=== PATIENT | male | born 1995 | race African-American/Black ===

== ENCOUNTER 2018-07-04 13:40 | Emergency (ER) | payer OTHER ==
[2018-07-04 13:45] VITALS: BP 124/81; PULSE 59; TEMP 98.6; BMI 23.1
--- NOTE | 2018-07-04 14:02 | PDOC ---
History of Present Illness - General Chief Complaint: Sore Throat Stated Complaint: SWOLLEN THROAT Time Seen by Provider: 07/04/18 13:44 History Source: Patient Exam Limitations: No Limitations - History of Present Illness Initial Comments: 22 yo M w no sig pmh presents with one day of "throat pain and uvula swelling." He woke up this morning and said the back of his throat felt uncomfortable. He rates the pain as 4/10. He does not admit to any dysphagia. He denies recent fevers, chills, infections, cough, or neck pain. Denies chest pain, SOB, difficulty breathing, headache, neck pain, blurry vision , back pain, odynophagia. PCP: Dr. Correa PSH: Right shoulder rotater cuff surgery Allergies: NKA, NKDA Social Hx: Denies smoking, drinking, or other substance usage. Past History - Past Medical History Allergies/Adverse Reactions: Allergies Allergy/AdvReac Type Severity Reaction Status Date / Time No Known Allergies Allergy Verified 07/04/18 13:41 Home Medications: Ambulatory Orders NK [No Known Home Medication] 07/04/18 COPD: No Other medical history: DENIES - Suicide/Smoking/Psychosocial Hx Smoking History: Never smoked Hx Alcohol Use: No Drug/Substance Use Hx: No Review of Systems - Review of Systems Able to Perform ROS?: Yes Comments:: CONSTITUTIONAL: Absent: fever, no chills, no fatigue EYES: Absent: visual changes ENT: Absent: ear pain, no sore throat CARDIOVASCULAR: Absent: chest pain, no palpitations RESPIRATORY: Absent: cough, no SOB GI: Absent: abdominal pain, no nausea, no vomiting, no constipation, no diarrhea GENITOURINARY: Absent: dysuria, no frequency, no hematuria MUSKULOSKELETAL: Absent: back pain, no arthralgia, no myalgia SKIN: Absent: rash NEURO: Absent: headache *Physical Exam - Vital Signs Last Vital Signs Temp Pulse Resp BP Pulse Ox 98.6 F 59 L 18 124/81 100 07/04/18 13:41 07/04/18 13:41 07/04/18 13:41 07/04/18 13:41 07/04/18 13:41 - Physical Exam Comments: GENERAL: Well-appearing, well-nourished. No apparent distress. HEEN: Normocephalic, atraumatic. PERRL, EOM intact. THROAT: There is no abdnomarl peritonsillar discharge. The R tonsil is mildly erythematous and swollen. No adenopathy. CARDIOVASCULAR: Normal S1, S2. Regular rate and rhythm. PULMONARY: Clear to auscultation bilaterally. ABDOMEN: Soft, non-distended, non-tender. EXTREMITIES: Normal ROM in all four extremities. No gross deformities. SKIN: Warm, dry. No rash NEUROLOGICAL: No focal neurological deficits. Moderate Sedation - Procedure Monitoring Vital Signs: Procedure Monitoring Vital Signs Temperature 98.6 F 07/04/18 13:41 Pulse Rate 59 L 07/04/18 13:41 Respiratory Rate 18 07/04/18 13:41 Blood Pressure 124/81 07/04/18 13:41 O2 Sat by Pulse Oximetry (%) 100 07/04/18 13:41 Medical Decision Making - Medical Decision Making 22 yo M w no sig pmh presents with one day of "throat pain and uvula swelling." He woke up this morning and said the back of his throat felt uncomfortable. DDx IBNLT: Strep throat, amelia-tonsilar abscess, URI. Plan: Rapid strep test, toradol, re-assess. Strep Negative. This is likely a URI. DC with supportive care and PCP fu. *DC/Admit/Observation/Transfer Diagnosis at time of Disposition: Tonsil pain, URI (upper respiratory infection) - Discharge Dispostion Disposition: HOME Condition at time of disposition: Stable Decision to Admit order: No - Referrals Referrals: [facility] [place] [place] [Provider Group] - Patient Instructions Printed Discharge Instructions: Sore Throat, DI for Pharyngitis/ Tonsillopharyngitis -- Adult Additional Instructions: You came into the ER with throat pain. We did a test which showed you do not have strep throat. We believe you have an upper respiratory infection. Take motrin, advil, ibuprofen or tylenol as needed for pain control. Make sure to call your primary care doctor in the next 24 hours to schedule a follow up appointment. Come back to the ER if your pain worsens, you get a fever, start vomiting, or have any other new or worsening concerns. Thank you for coming to the [facility]. We hope you feel better soon! Print Language: ESTONIAN - Post Discharge Activity
[2018-07-04] MEDS ORDERED: KETOROLAC TROMETHAMINE 60 MG/2 ML VIAL IM ONE (14:12)
[2018-07-04] MEDS ORDERED: KETOROLAC TROMETHAMINE 60 MG/2 ML VIAL ONE (14:20)
--- NOTE | 2018-07-04 14:42 | PDOC ---
Attending Attestation - Resident Resident Name: Rai Deluca - ED Attending Attestation I have performed the following: I have examined & evaluated the patient, The case was reviewed & discussed with the resident, I agree w/resident's findings & plan, Exceptions are as noted - HPI HPI: Reviewed residents HPI - Physicial Exam PE: 07/04/18 14:55 Vitals: Triage Vital signs reviewed General Appearance: no acute distress, well nourished well developed, Head: Atraumatic, Ears: TM's normal bilaterally; Nose: Nares patent bilaterally;no nasal congestion Throat: Posterior oropharynx with mild erythema, and mild swelling to the right tonsil, mucous membranes moist, Neck: Supple;No Nucal rigidity Chest Wall: Nontender Cardiac: Regular rate and rhythym, no murmurs, no rubs, no gallops, Lungs: Clear to auscultation bilateral, good air movement bilaterally, Skin: Warm and dry, no rashes or lesions, no rash, no petechiae Psych: normal mood, normal affect - Medical Decision Making 07/04/18 14:56 Mild right tonsillar enlargement no evidence of peritonsillar abscess rapid flu test negative no airway issues no odynophagia no severe pain We'll treat with conservative measures likely viral pharyngitis patient instructed to return to ED for any severe worsening symptoms burning concerns.
== END 2018-07-04 14:54 | disposition home or self-care (01) ==
LOC: FER 13:40
PROC: 3E0233Z Introduction of Anti-inflammatory into Muscle, Percutaneous Approach (ICD-10-PCS; principal; 2018-07-04)
DX: J06.9 Acute upper respiratory infection, unspecified (principal); R07.0 Pain in throat
CPT/HCPCS: 87070; 87880; 99281-25

== ENCOUNTER 2019-03-07 12:47 | Emergency (ER) | payer OTHER ==
[2019-03-07 12:56] VITALS: BP 125/79; PULSE 69; TEMP 98.6; BMI 23.7
--- NOTE | 2019-03-07 13:15 | PDOC ---
History of Present Illness - General Chief Complaint: Injury Stated Complaint: RIGHT KNEE INJURY Time Seen by Provider: 03/07/19 12:50 - History of Present Illness Initial Comments: 03/07/19 13:57 23-year-old male with no significant past medical history presents with knee pain for 1 hour. Patient reports he was running while playing basketball when a player suddenly stopped him while his R leg was planted but the rest of his body twisted. Pt reports hearing a "pop" which prompted him to sit down on the ground. Denies any head strike or LOC. Denies any other injuries. Reports 5 out of 10 pain at this time and his knee while resting but reports pain improved significantly when he tries to stand. Has not taken any medications. EMS was called and patient was transported to the emergency department. He has been in his usual state of health, denies recent fevers, chills, chest pain, shortness of breath, dizziness, weakness or numbness. Denies any urinary symptoms. Past History - Past Medical History Allergies/Adverse Reactions: Allergies Allergy/AdvReac Type Severity Reaction Status Date / Time No Known Allergies Allergy Verified 07/04/18 13:41 Home Medications: Ambulatory Orders NK [No Known Home Medication] 03/07/19 COPD: No - Suicide/Smoking/Psychosocial Hx Smoking History: Never smoked Information on smoking cessation initiated: No Hx Alcohol Use: Yes (OCCASSIONAL) Drug/Substance Use Hx: Yes (WEED) Review of Systems - Review of Systems Comments:: 03/07/19 14:03 GENERAL/CONSTITUTIONAL: No fever or chills. No weakness. HEAD, EYES, EARS, NOSE AND THROAT: No change in vision. No ear pain or discharge. No sore throat. GASTROINTESTINAL: No nausea, vomiting, diarrhea or constipation. GENITOURINARY: No dysuria, frequency, or change in urination. CARDIOVASCULAR: No chest pain or shortness of breath. RESPIRATORY: No cough, wheezing, or hemoptysis. MUSCULOSKELETAL: +Knee pain. No muscle swelling or pain. No neck or back pain. SKIN: No rash NEUROLOGIC: No headache, vertigo, loss of consciousness, or change in strength/ sensation. ENDOCRINE: No increased thirst. No abnormal weight change. HEMATOLOGIC/LYMPHATIC: No anemia, easy bleeding, or history of blood clots. ALLERGIC/IMMUNOLOGIC: No hives or skin allergy. *Physical Exam - Vital Signs Last Vital Signs Temp Pulse Resp BP Pulse Ox 98.6 F 69 16 125/79 100 03/07/19 12:48 03/07/19 12:48 03/07/19 12:48 03/07/19 12:48 03/07/19 12:48 - Physical Exam Comments: 03/07/19 14:04 GENERAL: Awake, alert, and fully oriented, in no acute distress HEAD: No signs of trauma EYES: PERRLA, EOMI, sclera anicteric, conjunctiva clear ENT: ANares patent, oropharynx clear without exudates. Moist mucosa NECK: Normal ROM, supple, no lymphadenopathy, JVD, or masses LUNGS: Breath sounds equal, clear to auscultation bilaterally. No wheezes, and no crackles HEART: Regular rate and rhythm, normal S1 and S2, no murmurs, rubs or gallops ABDOMEN: Soft, nontender, normoactive bowel sounds. No guarding, no rebound. No masses EXTREMITIES: R knee with FROM, no edema, no focal bony ttp. +mild laxity and pain with valgus stress to the knee. Negative robert, anterior drawer and posterior drawer test, negative mcmurrays test. 2+ DP and TP pulses. WWP distally. Compartments of RLE are soft. NEUROLOGICAL: Normal speech, cranial nerves intact, equal strength and sensation b/l SKIN: Warm, Dry, normal turgor, no rashes or lesions noted. ED Treatment Course - RADIOLOGY Radiology Studies Ordered: Category Date Time Status KNEE 4 POS-RIGHT [RAD] Stat Radiology 03/07/19 12:49 Taken Medical Decision Making - Medical Decision Making 03/07/19 14:21 23yo M presents to the ED with R knee pain after playing basketball RLE neurovasc intact XR negative for bony injury Exam most consistent with MCL sprain/tear Plan for knee immobilizer, crutches, naproxen for pain and f/u with orthopedics Pain well controlled Pt clincially stable for Dc home I discussed the physical exam findings, ancillary test results and final diagnoses with the patient. I answered all of the patient's questions. The patient was satisfied with the care received and felt comfortable with the discharge plan and treatment plan. The patient will call their primary care physician within 24 hours to arrange follow-up and will return to the Emergency Department with any new, persistent or worsening symptoms. *DC/Admit/Observation/Transfer Diagnosis at time of Disposition: Knee pain, acute, MCL sprain of right knee, Injury while playing basketball - Discharge Dispostion Disposition: HOME Condition at time of disposition: Stable Decision to Admit order: No - Referrals Referrals: Camron Qureshi MD [Staff Physician] - - Patient Instructions Printed Discharge Instructions: DI for Knee Pain Additional Instructions: You likely have a ligamentous injury to your knee. You must follow up with the orthopedic doctor within 1 week for further evaluation. You may take naproxen for pain as needed twice a day. Do not take motrin, aleve , ibuprofen, advil or any other NSAID medication if you are taking naproxen as it can damage your kidneys or cause gastrointestinal distress. You may also take tylenol (per label instructions) if naproxen is not controlling your pain. Apply ice to your right knee 3-4 times daily for 20 minutes at a time Return to the emergency department if you have any new, worsening, or concerning symptoms. - Post Discharge Activity - Attestations Physician Attestion: 03/07/19 14:28 I, Dr. Amadou Jensen MD, attest that this document has been prepared under my direction and personally reviewed by me in its entirety. I further attest, that it accurately reflects all work, treatment, procedures and medical decision -making performed by me.
[2019-03-07] MEDS ORDERED: NAPROXEN 500 MG TABLET (FP) PO ONE (13:54)
[2019-03-07] MEDS ORDERED: NAPROXEN 500 MG TABLET (FP) ONE (13:57)
== END 2019-03-07 14:39 | disposition home or self-care (01) ==
LOC: FER 12:47
PROC: 2W3LX1Z Immobilization of Right Lower Extremity using Splint (ICD-10-PCS; principal; 2019-03-07)
DX: S83.8X1A Sprain of other specified parts of right knee, initial encounter (principal); Y93.67 Activity, basketball; Y92.310 Basketball court as the place of occurrence of the external cause
CPT/HCPCS: 73564-TC-RT-FY; 99282-25

== ENCOUNTER 2019-04-26 17:02 | Emergency (ER) | payer OTHER ==
[2019-04-26 17:06] VITALS: BP 125/79; PULSE 81; TEMP 99; BMI 24.3
[2019-04-26] MEDS ORDERED: IBUPROFEN 600 MG TABLET (FP) PO ONE ×2 (17:12→17:14)
[2019-04-26] MEDS ORDERED: OXYMETAZOLINE 0.05% NASAL SOLUTION 15 ML BOTTLE NS ONE ×2 (17:12→17:14)
[2019-04-26] MEDS ORDERED: SODIUM CHLORIDE FOR INHALATION 3 ML VIAL.NEB IH ONE (17:12)
--- NOTE | 2019-04-26 17:26 | PDOC ---
Attending Attestation - Resident Resident Name: Sa Cariira - ED Attending Attestation I have performed the following: I have examined & evaluated the patient, The case was reviewed & discussed with the resident, I agree w/resident's findings & plan - HPI HPI: 04/26/19 17:22 23 YOM with no sig med history presenting with sinus congestion, throat pain, headache x 4 days. initially with sore throat, which has improved. no odynophagia, no fever or chills, no cough, no cp or sob. no ear pain has not take much for his pain or symptoms. - Physicial Exam PE: 04/26/19 17:23 alert, no acute distress.NCAT, PERRL, EOMI, clear conjunctiva, anicteric, moist mucus membranes, oropharynx clear. Airway patent, normal phonation. Uvula midline. no tonsillar hypertrophy. No sinus tenderness, TM clear, no pinna tenderness to manipulation. No rash, breathing comfortably on room air, speaking full sentences. Abdomen is soft and nontender, no neck tenderness or rigidity, WORKMAN x4.no focal neuro deficits - Medical Decision Making 04/26/19 17:25 Vital Signs Temp Pulse Resp BP Pulse Ox 99 F 81 19 125/79 97 04/26/19 17:03 04/26/19 17:03 04/26/19 17:03 04/26/19 17:03 04/26/19 17:03 Vital signs reviewed within normal limits. Nontoxic-appearing, tolerating oral intake. Neuro intact. No systemic findings. HEENT is unremarkable, no tonsillar findings or oropharyngeal abnormalities to suggest strep infection. no airway obstruction. Syndrome the patient is exhibiting is most likely due to a viral pharyngitis versus upper respiratory infection. Will trial saline nebs and Afrin sprays in the affected naris for appropriate decongestion. Not to be used more than 3 days. Continue with supportive care, adequate hydration, OTC analgesia and follow-up with primary care doctor, return precautions advised. 04/26/19 17:50
--- NOTE | 2019-04-26 17:36 | PDOC ---
History of Present Illness - General Chief Complaint: Headache Stated Complaint: nasal congestion and headache Time Seen by Provider: 04/26/19 17:04 History Source: Patient Exam Limitations: No Limitations - History of Present Illness Initial Comments: 04/26/19 17:36 23y M with no significant PMH presenting to ED with complaints of congestion and headache. Symptoms began 3d ago with sore throat. The sore throat is resolved but the headache and congestion persist. He says the headache is frontal along the sinuses. Has not had headaches before. Denies changes in vision, fevers, chills, earache, neck pain, abdominal pain, n/v/d, chest pain, sob. Has tried nasal sprays which help but it has not reduced the congestion. Has not taken other medications. Past History - Past Medical History Allergies/Adverse Reactions: Allergies Allergy/AdvReac Type Severity Reaction Status Date / Time No Known Allergies Allergy Verified 04/26/19 17:04 Home Medications: Ambulatory Orders NK [No Known Home Medication] 04/26/19 COPD: No - Psycho Social/Smoking Cessation Hx Smoking History: Current some day smoker Number of Cigarettes Smoked Daily: 1 Information on smoking cessation initiated: Yes Hx Alcohol Use: Yes (occasional) Drug/Substance Use Hx: No Review of Systems - Review of Systems Constitutional: No: Symptoms Reported HEENTM: Yes: See HPI Respiratory: No: Symptoms reported Cardiac (ROS): No: Symptoms Reported ABD/GI: No: Symptoms Reported : No: Symptoms Reported Musculoskeletal: No: Symptoms Reported Integumentary: No: Symptoms Reported Neurological: No: Symptoms reported *Physical Exam - Vital Signs Last Vital Signs Temp Pulse Resp BP Pulse Ox 99 F 81 19 125/79 97 04/26/19 17:03 04/26/19 17:03 04/26/19 17:03 04/26/19 17:03 04/26/19 17:03 - Physical Exam General Appearance: Yes: Nourished, Appropriately Dressed. No: Apparent Distress HEENT: positive: EOMI, PHOEBE, Pharynx Normal. negative: Rhinorrhea, Sinus Tenderness Neck: positive: Trachea midline, Supple. negative: Lymphadenopathy (R), Lymphadenopathy (L) Respiratory/Chest: positive: Lungs Clear, Normal Breath Sounds. negative: Crackles, Rales, Rhonchi, Stridor, Wheezing Cardiovascular: positive: Regular Rhythm, Regular Rate, S1, S2. negative: Edema , JVD, Murmur Gastrointestinal/Abdominal: positive: Normal Bowel Sounds, Soft. negative: Tender Musculoskeletal: negative: CVA Tenderness Integumentary: positive: Normal Color, Dry, Warm Neurologic: positive: sr. manager II-XII NML intact, Fully Oriented, Alert, Normal Mood/ Affect, Normal Response, Motor Strength 5/5 Medical Decision Making - Medical Decision Making 04/26/19 17:38 23y M presenting with congestion and headache. vitals wnl pe benign. ddx includes but not limited to sinusitis, tension granger, migraine granger, cluster granger, cvt. pt appears well, likely sinusitis/congestion. will give Afrin, saline nebulizer and ibuprofen. reassess. does not need labs or imaging at this time. feeling better, safe for dc home. given Afrin and instructions for Sudafed. pt agrees to plan dispo: home Discharge - Discharge Information Problems reviewed: Yes Clinical Impression/Diagnosis: Congestion of nasal sinus Headache Qualifiers: Headache type: unspecified Headache chronicity pattern: acute headache Intractability: not intractable Qualified Code(s): R51 - Headache Condition: Improved Disposition: HOME - Admission No - Follow up/Referral - Patient Discharge Instructions Patient Printed Discharge Instructions: DI for Headache, DI for Nasal Congestion Additional Instructions: You were seen in the emergency room today for congestion and headache. I recommend using the Afrin and taking Sudafed which is over the counter but found in the pharmacy. You can take ibuprofen or Tylenol for the headaches as needed. Come back to the emergency room for worsening headaches, changes in vision, fevers, or if any new or concerning symptom develops. Thank you - Post Discharge Activity
[2019-04-26] MEDS ORDERED: ACETAMINOPHEN 325 MG TABLET (FP) PO ONE (17:50)
[2019-04-26] MEDS ORDERED: ACETAMINOPHEN 325 MG TABLET (FP) ONE (18:04)
== END 2019-04-26 18:17 | disposition home or self-care (01) ==
LOC: FER 17:02
PROC: 3E0337Z Introduction of Electrolytic and Water Balance Substance into Peripheral Vein, Percutaneous Approach (ICD-10-PCS; principal; 2019-04-26)
DX: R51 Headache (principal); R09.81 Nasal congestion; F17.210 Nicotine dependence, cigarettes, uncomplicated
CPT/HCPCS: 99282-25

== ENCOUNTER 2019-04-29 09:51 | Emergency (ER) | payer OTHER ==
[2019-04-29 09:54] VITALS: BP 118/79; PULSE 68; TEMP 98; BMI 24.3
[2019-04-29] MEDS ORDERED: DEXAMETHASONE SOD PHOSPHATE 10 MG/1 ML VIAL IM ONE (10:22)
--- NOTE | 2019-04-29 10:22 | PDOC ---
History of Present Illness - General Chief Complaint: Sore Throat Stated Complaint: SORE THROAT Time Seen by Provider: 04/29/19 10:03 - History of Present Illness Initial Comments: 04/29/19 10:21 CHIEF COMPLAINT: sore throat HISTORY OF PRESENT ILLNESS: 23 yo M with no PMH presents to [facility] with sore throat "for some time." Patient reports today the pain became worse and he feels like he has difficulty swallowing. Denies any fever, chills, runny nose, nausea, vomiting, diarrhea. No recent travel or sick contacts. PAST MEDICAL HISTORY: Denies past medical history FAMILY HISTORY: Denies SOCIAL HISTORY: Denies tobacco, alcohol, illicit drug use. SURGICAL HISTORY: Denies ALLERGIES: No known drug allergies REVIEW OF SYSTEMS General/Constitutional: Denies fever or chills. Denies weakness, weight change. HEENT: Sore throat. Denies change in vision. Denies ear pain or discharge. Cardiovascular: Denies chest pain or shortness of breath. Respiratory: Denies cough, wheezing, or hemoptysis. Gastrointestinal: Denies nausea, vomiting, diarrhea or constipation. Denies rectal bleeding. Genitourinary: Denies dysuria, frequency, or change in urination. Musculoskeletal: Denies joint or muscle swelling or pain. Denies neck or back pain. Skin and breasts: Denies rash or easy bruising. Neurologic: Denies headache, vertigo, loss of consciousness, or loss of sensation. Psychiatric: Denies depression or anxiety. PHYSICAL EXAM General Appearance: Well-appearing, appropriately dressed. No apparent distress , no intoxication. HEENT: Tonsils erythematous, 3+ bilaterally. EOMI, PERRLA, normal ENT inspection , normal voice, TMs normal, pharynx normal. No conjunctival pallor. No photophobia, scleral icterus. Neck: Supple. Trachea midline. No tenderness, rigidity, carotid bruit, stridor , lymphadenopathy, or thyromegaly. Respiratory/Chest: Lungs CTAB. No shortness of breath, chest tenderness, respiratory distress, accessory muscle use. No crackles, rales, rhonchi, stridor , wheezing, dullness Cardiovascular: RRR. S1, S2. No JVD, murmur, bradycardia, tachycardia. Vascular Pulses: Dorsalis-Pedis (R): 2+, Dorsalis-Pedis (L): 2+ Gastrointestinal/Abdominal: Normal bowel sounds. Abdomen soft, non-distended. No tenderness or rebound tenderness. No organomegaly, pulsatile mass, guarding , hernia, hepatomegaly, splenomegaly. Lymphatic: No adenopathy, tenderness. Musculoskeletal/Extremities: Normal inspection. FROM of all extremities, normal capillary refill. Pelvis Stable. No CVA tenderness. No tenderness to extremities, pedal edema, swelling, erythema or deformity. Integumentary: Appropriate color, dry, warm. No cyanosis, erythema, jaundice or rash Neurologic: hospital receiving clerk II-XII intact. Fully oriented, alert. Appropriate mood/affect. Motor strength 5/5. No appreciable EOM palsy, facial droop or sensory deficit. 04/29/19 10:57 Past History - Past Medical History Allergies/Adverse Reactions: Allergies Allergy/AdvReac Type Severity Reaction Status Date / Time No Known Allergies Allergy Verified 04/29/19 09:54 Home Medications: Ambulatory Orders Ibuprofen 600 mg PO TID #20 tablet 04/29/19 Ibuprofen 600 mg PO TID #30 tablet 04/29/19 COPD: No - Psycho Social/Smoking Cessation Hx Smoking History: Current some day smoker Number of Cigarettes Smoked Daily: 1 Information on smoking cessation initiated: No Hx Alcohol Use: Yes (occasional) Drug/Substance Use Hx: No *Physical Exam - Vital Signs Last Vital Signs Temp Pulse Resp BP Pulse Ox 98 F 68 18 118/79 99 04/29/19 09:52 04/29/19 09:52 04/29/19 09:52 04/29/19 09:52 04/29/19 09:52 Medical Decision Making - Medical Decision Making 04/29/19 11:06 23 yo M with no PMH presents to [facility] with sore throat "for some time." -strep swab -decadron strep negative. Discharge - Discharge Information Problems reviewed: Yes Clinical Impression/Diagnosis: Pharyngitis Qualifiers: Pharyngitis/tonsillitis etiology: unspecified etiology Qualified Code(s): J02.9 - Acute pharyngitis, unspecified Condition: Stable Disposition: HOME - Admission No - Additional Discharge Information Prescriptions: Ibuprofen 600 mg PO TID #20 tablet Ibuprofen 600 mg PO TID #30 tablet - Follow up/Referral - Patient Discharge Instructions Patient Printed Discharge Instructions: DI for Viral Pharyngitis - Post Discharge Activity Work/Back to School Note: Back to Work
[2019-04-29] MEDS ORDERED: DEXAMETHASONE SOD PHOSPHATE 10 MG/1 ML VIAL ONE (10:53)
== END 2019-04-29 11:12 | disposition home or self-care (01) ==
LOC: JERFT 09:51
PROC: 3E0233Z Introduction of Anti-inflammatory into Muscle, Percutaneous Approach (ICD-10-PCS; principal; 2019-04-29)
DX: J02.9 Acute pharyngitis, unspecified (principal); F17.210 Nicotine dependence, cigarettes, uncomplicated
CPT/HCPCS: 87070; 87880; 96372; 99281-25; J1100